=== PATIENT | male | born 1960 | race Caucasian/White ===

== ENCOUNTER 2025-07-03 13:51 | Inpatient (IN) | payer MEDICARE, OTHER, SELFPAY ==
[2025-07-02 14:44] VITALS: BP 115/75
--- NOTE | 2025-07-02 15:16 | ED.GENMED ---
History of Present Illness
General
Chief Complaint: Skin Problem
Source: patient
Exam Limitations: none
Time Seen by Provider: 07/02/25 15:06
Nursing documentation reviewed up to this point in time: agreed with
History of Present Illness
History of Present Illness:
Note:
CHIEF COMPLAINT(S)
- Dizziness
- Chills
- Leg soreness
HISTORY OF PRESENT ILLNESS
The patient is a 64-year-old male who presented with complaints of dizziness, chills, and soreness in the leg. The symptoms started recently, and the patient reported feeling dizzy and experiencing chills. He also noted leg soreness, particularly in
the area where he has had venous insufficiency previously. The patient mentioned that he has not had a fever, and he attempted self-treatment with Tylenol and Advil yesterday.
The patient has a history of venous insufficiency, and a prior episode where his leg sores were slow to heal, requiring a physician-prescribed regimen of 40 grams of a topical product to promote healing. The patient is currently under a surgeons
care for venous insufficiency, with a follow-up appointment scheduled for the .
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 Regarding chills, he reported that around 4 or 5 PM, he was unable to warm up and felt cold.
PHYSICAL EXAM
General: Alert, no acute distress.
Skin: Warm, dry. erythema right lower leg
Head: Normocephalic, atraumatic.
Neck: Supple, trachea midline.
Eye Ears, nose, mouth and throat: Oral mucosa moist.
Cardiovascular: Normal peripheral perfusion, No edema.
Respiratory: Respirations are non-labored.
Gastrointestinal: Abdomen nondistended.
Back: Normal range of motion, Normal alignment.
Musculoskeletal: Normal ROM, normal strength.
Neurological: Alert and oriented to person, place, time, and situation, No focal neurological deficit observed.
Psychiatric: Cooperative, appropriate mood & affect.
PROBLEM LIST
Acute:
- Dizziness
- Chills
- Leg soreness
PLAN
- Conduct blood tests and ultrasound to assess for possible venous insufficiency or infection.
- Consider cellulitis or venous insufficiency as potential diagnoses.
- Initiate antibiotics only if tests indicate infection.
- Monitor the patients condition and follow up with results from diagnostics.
DIFFERENTIAL DIAGNOSIS
The Differential Diagnosis includes, in no particular order and is not limited to:
1. Cellulitis
2. Venous insufficiency
3. Deep vein thrombosis
4. Peripheral vascular disease
5. Infection
6. Peripheral neuropathy
7. Musculoskeletal strain
8. Drug side effects
9. Trauma or injury
10. Vascular insufficiency
Note:
CARE-UPDATE
07/02/25 - 21:24
Ultrasound showed no evidence of DVT. The patient exhibits glucocytosis and has cellulitis in the right lower extremity. Admitted to hospitalist for further management. Administered IV Vancomycin as part of the treatment plan.
Disposition:
SUMMARY OF ENCOUNTER
The patient, a 64-year-old male, was seen in the emergency department for recent onset of dizziness, chills, and leg soreness. Notably, the patient has a history of venous insufficiency. Physical examination revealed erythema in the right lower leg.
Considering the symptoms and examination findings, an ultrasound was performed, which showed no evidence of deep vein thrombosis. However, laboratory results showed leukocytosis, which, along with clinical findings, led to a diagnosis of cellulitis
in the right lower extremity. The patient was managed with intravenous vancomycin to address the suspected bacterial infection.
DISPOSITION
Admit to hospitalist.
ASSESSMENT
The patient presents with cellulitis of the right lower extremity, accompanied by leukocytosis.
EMERGENCY TREATMENTS ADMINISTERED
Intravenous vancomycin was initiated to treat the cellulitis.
MANAGEMENT OF THE PATIENTS CARE WAS DISCUSSED WITH
The hospitalist was consulted and agreed with the admission for further management.
PLAN
The patient is to be admitted for inpatient management of cellulitis with IV antibiotics. Further monitoring and care will be handled by the hospitalist team.
INDEPENDENT REVIEW OF LABS AND INTERPRETATION OF TESTS
My independent review of the complete blood count (CBC) revealed leukocytosis, which supports a diagnosis of cellulitis.
DIAGNOSIS
Cellulitis of right lower extremity (ICD-10: L03.115)
Phy Exam
Physical Exam
Physical Exam:
.
Sepsis
Sepsis Screening
Sepsis Assessment: Sepsis Ruled Out
Sepsis Screen
Sepsis Screen: Sepsis Ruled Out
Date: 07/02/25
Time: 21:26
Course
Orders/Labs/Results
Orders:
Orders
07/02/25 Dinner
Regular
At Your Request: Full Participation
07/02/25 15:15
US Periph Venous LOWER Ext RT Urgent
Comment:
Reason For Exam: right leg pain, swelling, red
07/02/25 15:20
CRP [C-Reactive Protein] Urgent
Comprehensive Metabolic Panel Urgent
07/02/25 15:21
Complete Blood Count/With Diff Urgent
ESR [Erythrocyte Sed Rate] Urgent
07/02/25 16:45
Vancomycin [Vancocin] 2,000 mg 0.9% Sodium Chloride 500 ml [Nss] 500 ml IV NOW
07/02/25 17:18
Admit/Transfer Patient As Directed
Co-Sign Provider:
Level of Care: Observation services
Assign to:: Medical/Surgical
Physician / Group: Antonio Hillman
Diagnosis: Cellulitis of leg, right
PRN Pain Medication Management As Directed
May give lesser potent ordered pain med per pt: Yes
preference::
Protocol:: Medication orders for pain may be administered in a
manner that supports deferring to patient preference
when the pt is:
- Requesting an ordered lesser potent pain medication.
Least to most potent pain medications are defined
as: acetaminophen < NSAID < tramadol < opioids
(morphine, oxycodone, hydromorphone).
- Requesting a lesser dose of the same medication IF
ORDERED.
- Requesting a less intrusive route of administration
if both routes are prescribed by the provider (PO <
IV).
07/02/25 17:19
Code Status As Directed
Resuscitation Status: Full Code
07/02/25 19:54
Acetaminophen [Tylenol] 650 mg PO Q4HPRN PRN
Enoxaparin Sodium [Lovenox] 40 mg SC QPM
07/02/25 19:54
WOUND/OSTOMY CONSULT Routine
Reason for Consult: compression for vernous insufficiency
Activity As Directed
Activity Level: Ambulate
Vital Signs As Directed
Frequency: Per unit guidelines
Weight As Directed
Frequency: Once
Comment: on admission
DX Deep Vein Thrombosis Video Routine
07/02/25 20:00
CeFAZolin 2 GRAM [Ancef] 2 grams in 10 ml IV Q8H
07/03/25 06:00
Complete Blood Count/No Diff IN AM
07/03/25 08:00
Aspirin Low Dose EC [Aspir Low (Enteric Coated)] 81 mg PO DAILY
Metoprolol Xl [Toprol Xl] 50 mg PO DAILY
Psyllium [Metamucil, Konsyl] 1 packet PO DAILY
Rosuvastatin Calcium [Crestor] 5 mg PO DAILY
Abnormal Lab Results
07/02/25 07/02/25
15:20 15:21
WBC 27.0 H 10^3/uL
(4.8-10.8)
MCH 32.3 H pg
(27.0-31.0)
MPV 11.2 H fL
(7.4-10.4)
Abs Immat Gran (auto) 0.2 H 10^3/uL
(0-0.05)
Absolute Neuts (auto) 20.3 H 10^3/uL
(1.4-6.5)
Absolute Lymphs (auto) 4.1 H 10^3/uL
(1.2-3.4)
Absolute Monos (auto) 2.4 H 10^3/uL
(0.1-0.6)
Immature Gran % 0.6 H %
(0-0.5)
Lymphocytes % 15.1 L %
(20.5-51.1)
Sodium 134 L mmol/L
(135-145)
BUN 22 H mg/dl
(9-20)
Glucose 103 H mg/dl
(70-99)
Total Bilirubin 2.7 H mg/dl
(0.2-1.3)
C-Reactive Protein 216.40 H mg/L
(0.0-10.00)
07/02/25 15:21
07/02/25 15:20
Vital Signs
Initial and Last Documented VS:
Initial Vital Signs
Temp Pulse Resp BP Pulse Ox
98.1 F 93 20 115/75 97
07/02/25 14:44 07/02/25 14:44 07/02/25 14:44 07/02/25 14:44 07/02/25 14:44
Last Documented Vital Signs
Temp Pulse Resp BP Pulse Ox
98.3 F 88 18 116/64 96
07/02/25 19:50 07/02/25 19:50 07/02/25 19:50 07/02/25 19:50 07/02/25 19:50
*Pulse Oximetry
SaO2: 97
Oxygen Mode of Delivery: Room air
Patient hypoxic: no
*Critical Care Note
Total Time (30-74mins, 75-104mins- exclusive of procedures): Not Applicable
ED Attending Note
-
Portions of this chart may have been created with voice recognition software.� Occasional wrong word or��sound alike� substitutions may have occurred due to the inherent limitations of voice recognition software.
Discharge Plan
Departure
Patient Disposition: Admit
Date of Disposition: 07/02/25
Time of Disposition: 16:31
Admit to: Med/Surg
Presentation/result/management discussed w/ accepting MD/DO: Hospitalist
Patient with high blood pressure during this ER visit?: Yes
Condition: Fair
Discharge Problem:
Cellulitis of leg, right
Interventions
Interventions:
*Risk Screen - Suicide Last Done: 07/02/25 14:44
*General Assessment Last Done: 07/02/25 14:44
*ED COVID-19 Vaccine History Last Done: 07/02/25 20:59
*Nursing Disposition Last Done: 07/02/25 19:57
Discharge Date and Time
Discharge Date/Time: 07/02/25 19:54
[2025-07-02 15:21] VITALS: BMI 25.5
[2025-07-02 16:00] LABS: ALT (SGPT) 14 U/L (0-50); AST (SGOT) 17 U/L (17-59); Albumin 4.2 g/dl (3.5-5.0); Alkaline Phosphatase 54 U/L (38-126); Blood Urea Nitrogen 22 mg/dl (9-20); Calcium 9.0 mg/dl (8.4-10.2); Carbon Dioxide 26 mmol/L (22-30); Chloride 100 mmol/L (98-107); Estimated Creatinine Clearance 90 ml/min; Glucose 103 mg/dl (70-99); Potassium 4.1 mmol/L (3.5-5.1); Sodium 134 mmol/L (135-145); Total Protein 6.9 g/dl (6.3-8.2); eGFR > 60.00
[2025-07-02 16:06] LABS: Hematocrit 46.9 % (39.0-52.0); Hemoglobin 16.1 g/dL (13.0-18.0); Mean Corp Hgb Conc. 34.3 g/dL (33.0-37.0); Mean Corpuscular Volume 94.0 fL (80.0-94.0); Nucleated Red Blood Cells % 0 % (-); Platelet Count 154 10^3/uL (130-400); Red Cell Dist. Width 13.4 % (11.5-14.5)
[2025-07-02 16:20] LABS: C-Reactive Protein 216.40 mg/L (0.0-10.00)
--- NOTE | 2025-07-02 16:35 | HPS.HSE ---
Family Physician
<AMANDA Calloway - Last Filed: 07/02/25 17:23>
-
Family Physician:
Chief Complaint
<AMANDA Calloway - Last Filed: 07/02/25 17:23>
-
soreness to right lower extremity
History of Present Illness
Patient is a 64-year-old male with past medical history significant for atrial fibrillation, hyperlipidemia and venous insufficiency who presented to [facility] ED for evaluation of soreness to right lower extremity. He reports that he noticed some
discomfort last evening but did not pay much mind to it and did not really inspect leg. This morning it was still bothersome and had burning sensation so when he looked he noticed that he had significant redness and went to urgent care for
evaluation, where they recommended he come to ED for evaluation. Patient denies any fever, chills, cough, shortness of breath, chest pain, nausea, vomiting, constipation, diarrhea or urinary symptoms.
Medical History
<AMANDA Calloway - Last Filed: 07/02/25 17:23>
Past Medical History
Past Medical History: Reports Other
Additional Past Medical History:
atrial fibrillation
hyperlipidemia
venous insufficiency
Past Surgical History: Reports None
Social History
Tobacco: Non-smoker
Alcohol: None
Drug: None
Personal:
Living: With Family
Employment: Employed
Family History
Family History: Other (Father: a-fib)
Allergies / Home Medications
Allergies reflects when Allergies were last updated in [employer]
Home Medications with original date entered in [employer]
Allergy/Medication List:
Allergies
Allergy/AdvReac Type Severity Reaction Status Date / Time
No Known Allergies Allergy Unverified 07/02/25 14:45
Home Medications
aspirin 81 mg tablet,delayed release 81 mg PO DAILY 07/02/25
ibuprofen 200 mg tablet (Advil) 400 mg PO DAILYPRN PRN mild pain 07/02/25
metoprolol succinate 50 mg tablet,extended release 24 hr (Toprol XL) 50 mg PO DAILY 07/02/25
psyllium husk (with sugar) 2 gram oral wafer (Metamucil Fiber Thin) 4 wafer PO DAILY 07/02/25
rosuvastatin 5 mg tablet (Crestor) 5 mg PO DAILY 07/02/25
Review of Systems
<AMANDA Calloway - Last Filed: 07/02/25 17:23>
-
History Source: Patient
Constitutional: Denies Fever or Chills
EENT: Denies Sore Throat
Respiratory: Denies Cough, Hemoptysis or Trouble Breathing
Cardiac: Denies Chest Pain, Diaphoresis, Palpitations or Syncope
Abdomen/GI: Denies Abdominal Pain, Nausea, Vomiting, Diarrhea or Constipated
: Denies Dysuria, Frequency or Urgency
Musculoskeletal: Denies Joint Pain or Joint Swelling
Skin: Reports Other (RLE ecchymosis and edema )
Neurological: Denies Dizzy, Headache, Weakness or Numbness
Physical Exam
<AMANDA Calloway - Last Filed: 07/02/25 17:23>
Vital Signs
Vital Signs
Temp Pulse Resp BP Pulse Ox
98.1 F 93 20 115/75 97
07/02/25 14:44 07/02/25 14:44 07/02/25 14:44 07/02/25 14:44 07/02/25 15:16
Physical Exam
General: Well Developed, Well Nourished, No Apparent Distress, Comfortable and Conversant
HEENT: NormoCephalic, Moist mucous membranes, Nose Appears Normal and Ears Appear Normal
Respiratory: Clear and Non Labored Respirations
Cardiac: S1/S2 and Regular Rhythm; No Murmur, Rub or Gallop
Breast: Deferred by me
GI: Soft, Non Tender, Non Distended and Normal Bowel Sounds
Musculoskeletal: No Cyanosis
Skin: Warm, IV/Catheter Site and Other (RLE ecchymosis with mild edema )
Neuro: Awake, AO x 3 and Nonfocal/grossly intact
Hematologic/Lymphatic: No Lymphadenopathy
Psych: Calm and Intact Judgment/Insight
Laboratory Results
<AMANDA Calloway - Last Filed: 07/02/25 17:23>
-
07/02/25 15:21
07/02/25 15:20
Laboratory Results
Total Bilirubin 2.7 mg/dl (0.2-1.3) H 07/02/25 15:20
AST 17 U/L (17-59) 07/02/25 15:20
ALT 14 U/L (0-50) 07/02/25 15:20
Alkaline Phosphatase 54 U/L (38-126) 07/02/25 15:20
Data Reviewed
<AMANDA Calloway - Last Filed: 07/02/25 17:23>
-
Ultrasound: Report Reviewed by me (RLE Mary Venous: No sonographic evidence for right lower extremity deep venous thrombosis.)
Lab Data: Labs Reviewed by me (WBC 27.0, CRP 216.40)
Impression/Plan
<AMANDA Calloway - Last Filed: 07/02/25 17:23>
-
IMPRESSION/PLAN:
#soreness to right lower extremity 2/2 DVT vs. cellulitis vs. vascular insufficiency
soreness to right lower extremity
Hx venous insufficiency
WBC 27.0, CRP 216.40
RLE Mary Venous US: No sonographic evidence for right lower extremity deep venous thrombosis.
- Admit to med/surg
- IV Cefazolin
- supportive care
#atrial fibrillation
- continue metoprolol
#hyperlipidemia
- continue rosuvastatin
Code status: full code
DVT prophylaxis: lovenox sq
<Antonio Hillman MD - Last Filed: 07/03/25 07:56>
-
Lab Data
WBC 27.0
CRP 216.40
RLE US:
No sonographic evidence for right lower extremity deep venous thrombosis.)
ASSESSMENT & PLAN
Significant R LLE cellulitis
Underlying chr venous insufficiency
NEG DVT
- Agree with IV Cefazolin 2gm q8h
- Wd care consult for compressive Tx
- supportive care
HX Prx AF
- on BAR ASSISTANT metoprolol
H yperlipidemia
- on BAR ASSISTANT rosuvastatin
DVT Px: LMWH
Full code
IP MS
--- NOTE | 2025-07-02 17:00 | W.PN.UPDATE ---
Update Note
Progress Note Update
This note serves as an addendum to the H&P by hand thermal cutter Nicola Hester
HPI
64M HX HLD, HTN seen at ER
- reports dizziness, chills, and soreness in the leg started recently
- experiencing chills
- leg soreness, particularly in the area where he has had venous insufficiency previously.-
- not had a fever, and he attempted self-treatment with Tylenol and Advil yesterday.
- HX venous insufficiency, and a prior episode where his leg sores were slow to heal, requiring a physician-prescribed regimen of 40 grams of a topical product to promote healing. The patient is currently - under a surgeons care for venous
insufficiency, with a follow-up appointment scheduled for the .
PHX
Relevant VS
Temp Pulse Resp BP Pulse Ox
98.1 F 93 20 115/75 97
07/02/25 14:44 07/02/25 14:44 07/02/25 14:44 07/02/25 14:44 07/02/25 15:16
PE
General: no acute distress.
HEENT: Normocephalic, atraumatic. Oral mucosa moist.
Neck: Supple, trachea midline.
Lungs: CTA
CVS: RRR No edema.
Abdomen nondistended.
CAMPAIGN MARKETING MANAGER: AAO3 No focal neurological deficit observed.
Skin: erythema right lower leg
Psychiatric: Cooperative, appropriate mood & affect.
Relevant Data
07/02/25 07/02/25
15:20 15:21
WBC 27.0 H
Sodium 134 L
BUN 22 H
Creatinine 1.0
eGFR > 60.00
Total Bilirubin 2.7 H
RLE Mary Venous
-Lab Data
WBC 27.0
CRP 216.40
RLE US:
No sonographic evidence for right lower extremity deep venous thrombosis.)
ASSESSMENT & PLAN
Significant R LLE cellulitis
Underlying chr venous insufficiency
NEG DVT
- Agree with IV Cefazolin 2gm q8h
- Wd care consult for compressive Tx
- supportive care
HX Prx AF
- on PIPELINE TECHNICIAN metoprolol
H yperlipidemia
- on PIPELINE TECHNICIAN rosuvastatin
DVT Px: LMWH
Full code
IP MS
[2025-07-02] MEDS: VANCOCIN 540 MG IV (17:27)
[2025-07-02 19:50] VITALS: BP 116/64; BMI 25.6
--- NOTE | 2025-07-02 20:03 | PTCARENOTE ---
Patient arrived from the ED via stretcher. Patient AAOx3, VSS. Ambulated into the room. Redness, edema and warmth to the RLE noted. Patient has no c/o dizziness or light headedness at this time.Patient oriented to the room, call spencer is within
reach.
[2025-07-02] MEDS: LOVENOX SC (20:48)
[2025-07-02] MEDS: ANCEF 10 IV (20:49)
[2025-07-02 21:07] VITALS: BMI 25.6
[2025-07-02 23:45] VITALS: BP 100/86
[2025-07-03] MEDS: ANCEF 10 IV ×3 (04:50→20:00)
[2025-07-03 07:00] VITALS: BP 121/77
[2025-07-03 07:54] LABS: Hematocrit 44.2 % (39.0-52.0); Hemoglobin 15.3 g/dL (13.0-18.0); Mean Corp Hgb Conc. 34.6 g/dL (33.0-37.0); Mean Corpuscular Volume 96.1 fL (80.0-94.0); Platelet Count 131 10^3/uL (130-400); Red Cell Dist. Width 13.4 % (11.5-14.5)
[2025-07-03] MEDS: TOPROL XL 50 MG PO (08:30)
[2025-07-03] MEDS: CRESTOR 5 MG PO (08:31)
[2025-07-03] MEDS: ASPIR LOW (ENTERIC COATED) 81 MG PO (08:31)
[2025-07-03] MEDS: METAMUCIL, KONSYL 1 PACKET PO (08:31)
--- NOTE | 2025-07-03 08:34 | W.PN.HOSP.TC ---
Today's Communication/Plan
-
Continue IV antibiotic.
Upgrade to inpatient
Assessment / Plan
Assessment / Plan
Impression:
Patient is a 64-year-old male with past medical history significant for atrial fibrillation, hyperlipidemia and venous insufficiency who presented to [facility] ED for evaluation of soreness to right lower extremity. He reports that he noticed some
discomfort last evening but did not pay much mind to it and did not really inspect leg. This morning it was still bothersome and had burning sensation so when he looked he noticed that he had significant redness and went to urgent care for
evaluation, where they recommended he come to ED for evaluation. Patient denies any fever, chills, cough, shortness of breath, chest pain, nausea, vomiting, constipation, diarrhea or urinary symptoms.
Assessment/plan:
Sepsis secondary to right lower extremity cellulitis
Ultrasound negative for DVT
Underlying chr venous insufficiency
Patient meets sepsis criteria admission with tachycardia WBC 27.0, CRP 216.40
RLE Mary Venous US: No sonographic evidence for right lower extremity deep venous thrombosis.
Continue IV cefazolin
-Patient with significant right lower extremity redness and leukocytosis improved from 27-17 but patient will require additional inpatient hospital stay for IV antibiotic and also continue secured entrance monitor A-fib with mild RVR, patient be upgraded to
full inpatient.
Persistent atrial fibrillation (mild RVR)
Continue secured entrance monitor.
Continue metoprolol, baby aspirin
Follow-up with cardiology as outpatient
Hyperlipidemia
- continue rosuvastatin
Mild hyponatremia
Continue to monitor
CODE STATUS: Full code
DVT prophylaxis: Lovenox
Diet: Regular diet
Disposition: Continue IV antibiotic.
Upgrade to inpatient
Total time spent on today's encounter was 50 minutes which included time spent in counseling the patient/family regarding diagnosis and treatment plan as listed above, goals of care, and symptom management. Case was discussed with nursing staff,
specialists, and care coordinators/case management. All labs and imaging personally reviewed by me. Remainder the time spent in detailed review of previous records, lab data, imaging, and other medical provider documentation.
Anticipated Discharge: 24 - 48 hours
Subjective/Interval History
-
Date of Service: July 03, 2025
Patient seen and examined at bedside, denies any chest pain or shortness of breath, no abdominal pain, no nausea, no vomiting, no diarrhea or constipation.
Still with significant redness
Objective Data
-
Labs:
Laboratory Results
07/03/25
06:26
WBC 17.6 H
Hgb 15.3
Hct 44.2
Plt Count 131
Vital Signs:
Vital Signs
Temp Pulse Resp BP Pulse Ox
98.3 F 76 16 121/77 98
07/03/25 07:00 07/03/25 07:00 07/03/25 07:00 07/03/25 07:00 07/03/25 07:00
I&O
07/02/25 07/03/25 07/04/25
06:59 06:59 06:59
Intake Total 480 / 480
Balance 480 / 480
Physical Exam
-
General: Well Developed, Well Nourished, No Apparent Distress and Comfortable
HEENT: Normocephalic, Atraumatic, Moist Mucous Membranes, No Ptosis, PERRLA and Nose Appears Normal
Respiratory: Clear to Auscultation and Non Labored Respirations
Cardiac: S1/S2 and Irregular Rhythm
Breast: Deferred by me
GI: Soft, Nontender, Nondistended and Normal Bowel Sounds
Genito-urinary: No Costovertebral Tender
Musculoskeletal: Edema, Right Lower Extrem and Other (Significant redness of the right lower extremity.)
Neuro: Awake, Alert, Oriented, AO x 3 and No Motor Deficits
Psych: Calm
Data Reviewed
-
Diagnostic Radiology: Image personally visualized and interpreted and Report Reviewed by me
CT Scan: Image personally visualized and interpreted and Report Reviewed by me
Ultrasound: Image personally visualized and interpreted and Report Reviewed by me
MRI: Image personally visualized and interpreted and Report Reviewed by me
Medical Tests (Nuc Med, Echo etc): Image personally visualized and interpreted and Report Reviewed by me
Labs: Labs Reviewed by me
Old Records: Reviewed
--- NOTE | 2025-07-03 10:38 | WOUNDNOTE ---
MADDI RN note: Patient admitted with cellulitis of R leg.
See H&P for complete history.
PMH: Patient is a 64-year-old male with past medical history significant for atrial fibrillation, hyperlipidemia and venous insufficiency who presented to [facility] ED for evaluation of soreness to right lower extremity.
Wound Location and type/assessment: Patient admitted with: Redness and warmth to R leg, edema + 1 both legs. + palpable pedal pulses, heels intact. Patient able to turn self, sacrum intact. Assessed patient along with Dr. Lorenzo at bedside, approved
of compression.
Appetite: Good.
Pressure redistribution devices in place: Accumax, pillow under calves, leg elevation when sitting.
Plan: B/L knee high maninder wraps.
Confirmed orders with hospitalist and updated nurse Betty.
Updated care plan and will follow as needed.
Note to case management of equipment requested for discharge: None.
[2025-07-03 11:00] VITALS: BP 131/84
--- NOTE | 2025-07-03 11:53 | CM ---
Alert awake oriented patient who lives with Makayla in a split level home with 19stesps to enter. He is independent in working driving and all ADLs.
Offered VN he declined need at this time.SOLARES letter given explained Pt declined to sign [employer] .
No adaptive devices.
No VN/SNF jx
Pharmacy [facility]
PCP DR Roberts
PLAN Home no anticipated needs
[2025-07-03 15:00] VITALS: BP 138/73
--- NOTE | 2025-07-03 16:09 | CM ---
Patient switched to inpatient IMM completed, signed and placed on chart at 4pm, 07/03/2025.
[2025-07-03] MEDS: LOVENOX SC (17:07)
[2025-07-03] MEDS: LOVENOX 40 MG SC (17:50)
[2025-07-03 19:27] VITALS: BP 138/79
[2025-07-03 23:14] VITALS: BP 124/78
[2025-07-04] VITALS (7 sets, daily range): BP systolic 113–138; BP diastolic 78–84
[2025-07-04] MEDS: ANCEF 10 IV ×3 (04:31→20:23)
[2025-07-04] MEDS: ASPIR LOW (ENTERIC COATED) 81 MG PO (07:33)
[2025-07-04] MEDS: CRESTOR 5 MG PO (07:33)
[2025-07-04] MEDS: METAMUCIL, KONSYL 1 PACKET PO (07:33)
[2025-07-04] MEDS: TOPROL XL 50 MG PO (07:33)
[2025-07-04 09:28] LABS: Hematocrit 46.1 % (39.0-52.0); Hemoglobin 16.5 g/dL (13.0-18.0); Mean Corp Hgb Conc. 35.8 g/dL (33.0-37.0); Mean Corpuscular Volume 92.6 fL (80.0-94.0); Nucleated Red Blood Cells % 0 % (-); Platelet Count 164 10^3/uL (130-400); Red Cell Dist. Width 12.9 % (11.5-14.5)
[2025-07-04 10:31] LABS: ALT (SGPT) < 10 U/L (0-50); AST (SGOT) 16 U/L (17-59); Albumin 3.7 g/dl (3.5-5.0); Alkaline Phosphatase 52 U/L (38-126); Blood Urea Nitrogen 14 mg/dl (9-20); Calcium 8.7 mg/dl (8.4-10.2); Carbon Dioxide 23 mmol/L (22-30); Chloride 105 mmol/L (98-107); Estimated Creatinine Clearance > 125 ml/min; Glucose 116 mg/dl (70-99); Potassium 4.3 mmol/L (3.5-5.1); Sodium 135 mmol/L (135-145); Total Protein 6.3 g/dl (6.3-8.2); eGFR > 60.00
--- NOTE | 2025-07-04 12:40 | W.PN.HOSP.TC ---
Today's Communication/Plan
-
Continue IV antibiotic.
Possible discharge tomorrow.
Assessment / Plan
Assessment / Plan
Impression:
Patient is a 64-year-old male with past medical history significant for atrial fibrillation, hyperlipidemia and venous insufficiency who presented to [facility] ED for evaluation of soreness to right lower extremity. He reports that he noticed some
discomfort last evening but did not pay much mind to it and did not really inspect leg. This morning it was still bothersome and had burning sensation so when he looked he noticed that he had significant redness and went to urgent care for
evaluation, where they recommended he come to ED for evaluation. Patient denies any fever, chills, cough, shortness of breath, chest pain, nausea, vomiting, constipation, diarrhea or urinary symptoms.
Started on IV cefazolin.
Zosyn erythema improved.
Possible discharge home on Keflex
Assessment/plan:
Sepsis secondary to right lower extremity cellulitis
Ultrasound negative for DVT
Underlying chronic venous insufficiency
Patient meets sepsis criteria admission with tachycardia WBC 27.0, CRP 216.40
RLE Mary Venous US: No sonographic evidence for right lower extremity deep venous thrombosis.
Continue IV cefazolin
Leukocytosis and redness improved
Persistent atrial fibrillation (mild RVR)
Continue importer exporter.
Continue metoprolol, baby aspirin
Follow-up with cardiology as outpatient
Hyperlipidemia
- continue rosuvastatin
Mild hyponatremia
Continue to monitor
Hyperbilirubinemia
Improved
CODE STATUS: Full code
DVT prophylaxis: Lovenox
Diet: Regular diet
Disposition: Continue IV antibiotic.
Possible discharge tomorrow.
Total time spent on today's encounter was 50 minutes which included time spent in counseling the patient/family regarding diagnosis and treatment plan as listed above, goals of care, and symptom management. Case was discussed with nursing staff,
specialists, and care coordinators/case management. All labs and imaging personally reviewed by me. Remainder the time spent in detailed review of previous records, lab data, imaging, and other medical provider documentation.
Anticipated Discharge: Within 24 hours
Subjective/Interval History
-
Date of Service: July 04, 2025
Patient seen and examined at bedside, still with right-sided redness but overall improved.
Leukocytosis improved, denies any chest pain or shortness of breath, no abdominal pain, no nausea, no vomiting, no diarrhea or constipation.
Objective Data
-
Labs:
Laboratory Results
07/04/25
09:10
WBC 14.4 H
Hgb 16.5
Hct 46.1
Plt Count 164 D
Sodium 135
Potassium 4.3
Chloride 105
Carbon Dioxide 23
BUN 14
Creatinine 0.7
Glucose 116 H
Calcium 8.7
Total Bilirubin 1.3 D
AST 16 L
ALT < 10
Alkaline Phosphatase 52
Vital Signs:
Vital Signs
Temp Pulse Resp BP Pulse Ox
98.6 F 101 16 123/84 96
07/04/25 10:48 07/04/25 10:48 07/04/25 10:48 07/04/25 10:48 07/04/25 10:48
I&O
07/03/25 07/04/25 07/05/25
06:59 06:59 06:59
Intake Total 480 / 480 1080 / 1080 720 / 720
Balance 480 / 480 1080 / 1080 720 / 720
Physical Exam
-
General: Well Developed, Well Nourished, No Apparent Distress and Comfortable
HEENT: Normocephalic, Atraumatic, Moist Mucous Membranes, No Ptosis, PERRLA and Nose Appears Normal
Respiratory: Clear to Auscultation and Non Labored Respirations
Cardiac: S1/S2 and Irregular Rhythm
Breast: Deferred by me
GI: Soft, Nontender, Nondistended and Normal Bowel Sounds
Genito-urinary: No Costovertebral Tender
Musculoskeletal: Edema, Right Lower Extrem and Other (Improved redness of the right lower extremity.)
Neuro: Awake, Alert, Oriented, AO x 3 and No Motor Deficits
Psych: Calm
[2025-07-04] MEDS: LOVENOX 40 MG SC (16:26)
[2025-07-04] MEDS: FLUSH (NSS) 1 FLUSH IV (20:25)
[2025-07-05 03:15] VITALS: BP 132/76
[2025-07-05] MEDS: ANCEF 10 IV ×2 (04:39→12:00)
[2025-07-05 06:55] LABS: Hematocrit 45.0 % (39.0-52.0); Hemoglobin 15.5 g/dL (13.0-18.0); Mean Corp Hgb Conc. 34.4 g/dL (33.0-37.0); Mean Corpuscular Volume 94.1 fL (80.0-94.0); Platelet Count 156 10^3/uL (130-400); Red Cell Dist. Width 12.9 % (11.5-14.5)
[2025-07-05 07:02] LABS: Blood Urea Nitrogen 16 mg/dl (9-20); Calcium 8.6 mg/dl (8.4-10.2); Carbon Dioxide 26 mmol/L (22-30); Chloride 103 mmol/L (98-107); Estimated Creatinine Clearance 100 ml/min; Glucose 103 mg/dl (70-99); Potassium 4.1 mmol/L (3.5-5.1); Sodium 136 mmol/L (135-145); eGFR > 60.00
[2025-07-05 08:01] VITALS: BP 126/78
[2025-07-05] MEDS: METAMUCIL, KONSYL 1 PACKET PO (08:57)
[2025-07-05] MEDS: CRESTOR 5 MG PO (09:00)
[2025-07-05] MEDS: ASPIR LOW (ENTERIC COATED) 81 MG PO (09:00)
[2025-07-05] MEDS: TOPROL XL 50 MG PO (09:00)
[2025-07-05 11:54] VITALS: BP 143/82
--- NOTE | 2025-07-05 12:36 | W.PN.HOSP.TC ---
Today's Communication/Plan
-
Dc home today.
Assessment / Plan
Assessment / Plan
Impression:
Patient is a 64-year-old male with past medical history significant for atrial fibrillation, hyperlipidemia and venous insufficiency who presented to [facility] ED for evaluation of soreness to right lower extremity. He reports that he noticed some
discomfort last evening but did not pay much mind to it and did not really inspect leg. This morning it was still bothersome and had burning sensation so when he looked he noticed that he had significant redness and went to urgent care for
evaluation, where they recommended he come to ED for evaluation. Patient denies any fever, chills, cough, shortness of breath, chest pain, nausea, vomiting, constipation, diarrhea or urinary symptoms.
Started on IV cefazolin.
Lower EXTR erythema improved.
Will be discharged home on Keflex
Assessment/plan:
Sepsis secondary to right lower extremity cellulitis
Ultrasound negative for DVT
Underlying chronic venous insufficiency
Patient meets sepsis criteria admission with tachycardia WBC 27.0, CRP 216.40
RLE Mary Venous US: No sonographic evidence for right lower extremity deep venous thrombosis.
Continue IV cefazolin
Leukocytosis and redness improved
Discharge home today on keflex
Persistent atrial fibrillation (mild RVR)
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
Continue metoprolol, baby aspirin
Follow-up with cardiology as outpatient
Hyperlipidemia
- continue rosuvastatin
Mild hyponatremia
Continue to monitor
Hyperbilirubinemia
Improved
CODE STATUS: Full code
DVT prophylaxis: Lovenox
Diet: Regular diet
Disposition: Dc home.
Total time spent on today's encounter was 50 minutes which included time spent in counseling the patient/family regarding diagnosis and treatment plan as listed above, goals of care, and symptom management. Case was discussed with nursing staff,
specialists, and care coordinators/case management. All labs and imaging personally reviewed by me. Remainder the time spent in detailed review of previous records, lab data, imaging, and other medical provider documentation.
Anticipated Discharge: Today
Subjective/Interval History
-
Date of Service: July 05, 2025
Patient seen and examined at bedside, denies any chest pain or shortness of breath, no abdominal pain, no nausea, no vomiting, no diarrhea or constipation.
Improved redness.
Objective Data
-
Labs:
Laboratory Results
07/05/25
05:59
WBC 11.3 H
Hgb 15.5
Hct 45.0
Plt Count 156
Sodium 136
Potassium 4.1
Chloride 103
Carbon Dioxide 26
BUN 16
Creatinine 0.9
Glucose 103 H
Calcium 8.6
Vital Signs:
Vital Signs
Temp Pulse Resp BP Pulse Ox
98.1 F 97 18 143/82 98
07/05/25 11:54 07/05/25 11:54 07/05/25 11:54 07/05/25 11:54 07/05/25 11:54
I&O
07/04/25 07/05/25 07/06/25
06:59 06:59 06:59
Intake Total 1080 / 1080 960 / 960
Balance 1080 / 1080 960 / 960
Physical Exam
-
General: Well Developed, Well Nourished, No Apparent Distress and Comfortable
HEENT: Normocephalic, Atraumatic, Moist Mucous Membranes, No Ptosis, PERRLA and Nose Appears Normal
Respiratory: Clear to Auscultation and Non Labored Respirations
Cardiac: S1/S2 and Irregular Rhythm
Breast: Deferred by me
GI: Soft, Nontender, Nondistended and Normal Bowel Sounds
Genito-urinary: No Costovertebral Tender
Musculoskeletal: Edema, Right Lower Extrem and Other (Improved redness of the right lower extremity.)
Neuro: Awake, Alert, Oriented, AO x 3 and No Motor Deficits
Psych: Calm
--- NOTE | 2025-07-05 13:19 | W.DCSUMMARY ---
Discharge Summary
Discharge Data
Date of Admission: 07/03/25
Date of Discharge: 07/05/25
Total time spent discharging patient (in min): 40
-
Pending Results: No
Hospital Course
Hospital course
Patient is a 64-year-old male with past medical history significant for atrial fibrillation, hyperlipidemia and venous insufficiency who presented to [facility] ED for evaluation of soreness to right lower extremity. He reports that he noticed some
discomfort last evening but did not pay much mind to it and did not really inspect leg. This morning it was still bothersome and had burning sensation so when he looked he noticed that he had significant redness and went to urgent care for
evaluation, where they recommended he come to ED for evaluation. Patient denies any fever, chills, cough, shortness of breath, chest pain, nausea, vomiting, constipation, diarrhea or urinary symptoms.
Started on IV cefazolin.
Lower EXTR erythema improved.
Will be discharged home on Keflex.
During hospitalization patient was treated from the following
Sepsis secondary to right lower extremity cellulitis
Ultrasound negative for DVT
Underlying chronic venous insufficiency
Patient meets sepsis criteria admission with tachycardia WBC 27.0, CRP 216.40
RLE Mary Venous US: No sonographic evidence for right lower extremity deep venous thrombosis.
Continue IV cefazolin
Leukocytosis and redness improved
Discharge home today on keflex
Persistent atrial fibrillation (mild RVR)
Continue patient monitor.
Continue metoprolol, baby aspirin
Follow-up with cardiology as outpatient
Hyperlipidemia
- continue rosuvastatin
Mild hyponatremia
Continue to monitor
Hyperbilirubinemia
Improved
CODE STATUS: Full code
DVT prophylaxis: Lovenox
Diet: Regular diet
Disposition: Dc home.
Total time spent on today's encounter was 40 minutes which included time spent in counseling the patient/family regarding diagnosis and treatment plan as listed above, goals of care, and symptom management. Case was discussed with nursing staff,
specialists, and care coordinators/case management. All labs and imaging personally reviewed by me. Remainder the time spent in detailed review of previous records, lab data, imaging, and other medical provider documentation.
Anticipated Discharge: Today
Discharge Plan
-
Patient Disposition: Home (Routine Discharge)
Discharge Diagnosis/Procedures: Right lower extremity cellulitis.
Sepsis secondary to cellulitis.
Persistent A-fib
Diet: Low Cholesterol and Low Residue
Activity: As tolerated
Activity Restrictions/Additional Instructions:
Wound Care Instructions
legs: maninder wraps knee high daily, can remove at bedtime or resume compression stockings at home
Can follow up at [facility] pharmacy for compression stockings with zipper
Leg elevation when sitting
Stand Alone Forms: Return to Work
Referrals:
Jeevan Roberts DO [Family Provider, [facility]]
Prescriptions:
New
cephalexin 500 mg capsule
500 mg PO Q6H 7 Days Qty: 28 0RF
Probiotic 100 billion cell capsule
1 cap PO DAILY Qty: 10 0RF
Continued
metoprolol succinate [Toprol XL] 50 mg Tablet Extended Release 24 Hr
50 mg PO DAILY
aspirin 81 mg Tablet,Delayed Release (Dr/Ec)
81 mg PO DAILY
ibuprofen [Advil] 200 mg Tablet
400 mg PO DAILYPRN PRN (Reason: mild pain)
rosuvastatin [Crestor] 5 mg Tablet
5 mg PO DAILY
Metamucil Fiber Thin 2 gram Wafer
4 wafer PO DAILY
Discharge Orders:
Discharge Patient (As Directed); Ordered 07/05/25
Ordered By: Reina Lorenzo
Discharge Date and Time
Print Language: LUXEMBOURGER
--- NOTE | 2025-07-05 14:02 | CM ---
Md entered order for discharge.
Spoke with patient he agrees with discharge to home today .
His Petra will drive him home.
Offered VN he declined need.
PLAN Home no needs
== END 2025-07-05 14:49 | disposition home or self-care (01) | DRG 872 ==
LOC: 4 EAST ACU 13:51
PROVIDERS: Nurse Practitioner Family; ADMITTING PHYSICIAN Internal Medicine; ATTENDING PHYSICIAN General Practice; EMERGENCY PHYSICIAN Emergency Medicine; FAMILY PHYSICIAN Family Medicine
DX: A41.9 Sepsis, unspecified organism (principal); L03.115 Cellulitis of right lower limb; I48.19 Other persistent atrial fibrillation; E87.1 Hypo-osmolality and hyponatremia; R17 Unspecified jaundice; E78.5 Hyperlipidemia, unspecified; Z79.899 Other long term (current) drug therapy; I87.2 Venous insufficiency (chronic) (peripheral); I10 Essential (primary) hypertension
CPT/HCPCS: 80048; 80053; 85025; 85027; 85652; 86140; 93971; 99285